=== PATIENT | female | born 1940 | race Caucasian/White ===

== ENCOUNTER → 2019-03-20 09:54 | Outpatient (CLI) | payer MEDICARE, SELFPAY ==
--- NOTE | 2019-03-20 10:00 | RAD_ITS ---
PROCEDURE: Fluoroscopic guided right shoulder Injection DATE: March 20, 2019. INDICATION: Female, 78 years old. Chronic right shoulder pain. PHYSICIAN: Romero Espinal M.D. MEDICATIONS: 12 mg of betamethasone and 4 cc of 1% lidocaine. 2% Lidocaine administered subcutaneously for local anesthesia. ACCESS SITE: Right shoulder. NEEDLE: 22-gauge spinal needle. FLUOROSCOPY TIME (if supplied): (0:27) minutes/seconds FINDINGS: The risks, benefits, and alternatives to the procedure were explained to the patient. The specific risks of bleeding, infection, and neurovascular injury were detailed and accepted. Witnessed informed consent was obtained. A 22-gauge spinal needle was positioned under radiographic fluoroscopic localization. Approximately 2 cc of Isovue-300 instilled for localization purposes. Medication was then injected. The patient tolerated the procedure well without any immediate complications. RAD/Inj/Asp Uche Jt Should/Hip/Knee IMPRESSION: 1. Successful fluoroscopic guided right shoulder injection. Electronically Signed: Romero Espinal, at 10:53 EDT , Service support ,
== END ==
PROVIDERS: Family Provider Family Medicine; PCP Family Medicine; Referring Provider Specialist; Visit Provider Specialist
DX: M19.011 Primary osteoarthritis, right shoulder (principal)
CPT/HCPCS: 20610; 77002; Q9967; J0702

== ENCOUNTER → 2025-05-16 | Outpatient (CLI) | payer MEDICARE, SELFPAY ==
--- NOTE | 2025-05-16 16:34 | US_ITS ---
PROCEDURE: PELVIC W/ TRANSVAGINAL 05/16/2025 REASON FOR EXAM: L ADNEXAL MASS TECHNIQUE: Procedure Code: [id number] Modality: US Procedure: PELVIC W/ TRANSVAGINAL COMPARISON: None FINDINGS: Measurements: Uterus: Patient has had a prior hysterectomy. There are no abnormalities identified at the postsurgical site. Right Ovary: 2.6 x 1.7 x 1.0 cm with a volume of 2.3 mL. Size, contour, and echogenicity are within normal limits. There is blood flow to the right ovary. There is no evidence of ovarian torsion. There are no masses seen. Left Ovary: 4.7 x 3.9 x 3.4 cm with a volume of 33 mL. There appears to be an exophytic simple cystic mass measuring 3.7 x 2.8 x 2.5 cm. There is blood flow to the left ovary. There is no evidence of ovarian torsion. Other: There is no free fluid in the cul-de-sac. The urinary bladder measures 10.0 x 9.4 x 7.4 cm. The bladder wall is smooth. There are no filling defects seen in the urinary bladder. The urinary bladder volume is 362 mL. US/Pelvic w/ Transvaginal IMPRESSION: Evidence of previous hysterectomy. Normal-appearing right ovary. Left ovary benign-appearing simple cyst. Reading Location: [id number]
== END | disposition home or self-care (01) ==
LOC: US 16:32
PROVIDERS: PCP Family Medicine; Referring Provider Nurse Practitioner Women's Health; Visit Provider Nurse Practitioner Women's Health
DX: N94.89 Other specified conditions associated with female genital organs and menstrual cycle (principal); N83.8 Other noninflammatory disorders of ovary, fallopian tube and broad ligament
CPT/HCPCS: 76830; 76856